=== PATIENT | female | born 1995 | race Caucasian/White ===

== ENCOUNTER 2024-01-10 10:36 | Inpatient (IN) | payer SELFPAY ==
[2024-01-10] VITALS (53 sets, daily range): BP systolic 113–165; BP diastolic 60–94; PULSE 66–90; RESP 14–18; TEMP 36.4–38.6; O2SAT 80–100; BMI 35.6
[2024-01-10] MEDS: Lactated Ringers 1,000 ML 999 ML IV (10:40)
[2024-01-10 11:01] LABS: Absolute Neutrophil Count 9.8 X10^3/uL (2.0-7.7); Basophil# 0.02 X10^3/uL; Basophil% 0.2 % (0-1); Hematocrit 38.6 % (37-47); Hemoglobin 13.1 g/dL (12.0-15.0); Lymphocyte % 12.3 % (19-41); Mean Corp Hgb Conc 33.9 g/dL (32-36); Mean Corpuscular Hgb 30.5 pg (27.0-32.0); Mean Platelet Vol. 10.9 fl (6.2-12.0); Monocyte# 0.88 X10^3/uL; Monocyte% 7.2 % (0-10); NRBC Flagged by Analyzer 0 % (0-5); Neutrophil # 9.77 X10^3/uL (2.7-7.7); Neutrophil % 79.8 % (47-70); Platelet Count 192 K/mm3 (150-450); RBC Distribution Width CV 14.3 % (11.6-14.6); RBC Distribution Width SD 46.8 fl (35.1-43.9); Red Blood Count 4.29 M/mm3 (4.2-5.4); White Blood Count 12.2 K/mm3 (4.4-11.0)
[2024-01-10] MEDS: Lactated Ringers 1,000 ML 150 ML IV (11:28)
[2024-01-10] MEDS: fentaNYL-bupivacaine (epidural) 100 ML BAG EPIDURAL (11:54)
--- NOTE | 2024-01-10 13:02 | PCM.HP.OB ---
HPI - General General Date of Admission: 01/10/24 Date of Service: 01/10/24 HPI Narrative BRANNON LAWSON, is a 28 F who presents from home in labor. Patient states that her water broke at 7:30pm last night and she was having contractions. Her printed circuit layout taper called and stated patient has been 8cm for 6 hours. Patient is now comfortable with an epidural. Maternal Data Information YANIV Calculator Estimated Delivery Date Method Current WG Current Estimate 01/11/24 Manual 39w 6d PFSH PFSH Medical History Gestational HTN Home Medications ?Medication ?Instructions ?Recorded ?Last Taken ?Type vzcfgbry-daj-Hg-FA 1 mg tab PO 1XD 01/10/24 01/10/24 History tablet Allergy/AdvReac Type Severity Reaction Status Date / Time No Known Allergies Allergy Verified 01/10/24 11:14 Family History no significant family his Surgical History no surgical history Social History Smoking Status: Never smoker History Elective abortions Hx Para 3 Spontaneous abortions Hx # Term Pregnancies Ectopic pregnancies Hx # Pregnancies Multiple births # of living children NST FHR Rate Baby A Baseline: 135 Variability:: Moderate Accelerations:: 15 x 15 Decelerations:: None Uterine Activity:: Q4-5 minutes Vital Signs Vital Signs Vital Signs: 01/10/24 11:36 01/10/24 11:36 01/10/24 11:41 Pulse Rate 66 76 Blood Pressure BP Systolic BP Diastolic Pulse Ox 99 01/10/24 11:41 01/10/24 11:42 01/10/24 11:42 Pulse Rate 75 Blood Pressure 165/89 H BP Systolic 165 BP Diastolic 89 Pulse Ox 100 01/10/24 11:46 01/10/24 11:46 01/10/24 11:49 Pulse Rate 70 Blood Pressure 150/91 H BP Systolic 150 BP Diastolic 91 Pulse Ox 100 01/10/24 11:49 01/10/24 11:51 01/10/24 11:51 Pulse Rate 74 67 Blood Pressure BP Systolic BP Diastolic Pulse Ox 100 01/10/24 11:53 01/10/24 11:53 01/10/24 11:56 Pulse Rate 67 80 Blood Pressure 157/94 H BP Systolic 157 BP Diastolic 94 Pulse Ox 01/10/24 11:56 01/10/24 11:58 01/10/24 11:58 Pulse Rate 70 Blood Pressure 161/90 H BP Systolic 161 BP Diastolic 90 Pulse Ox 100 01/10/24 11:58 01/10/24 12:01 01/10/24 12:01 Pulse Rate 80 Blood Pressure BP Systolic BP Diastolic Pulse Ox 83 96 01/10/24 12:02 01/10/24 12:02 01/10/24 12:05 Pulse Rate 77 84 Blood Pressure 149/91 H BP Systolic 149 BP Diastolic 91 Pulse Ox 01/10/24 12:05 01/10/24 12:06 01/10/24 12:06 Pulse Rate 78 Blood Pressure BP Systolic BP Diastolic Pulse Ox 93 92 01/10/24 12:07 01/10/24 12:07 01/10/24 12:11 Pulse Rate 76 78 Blood Pressure 157/85 H BP Systolic 157 BP Diastolic 85 Pulse Ox 01/10/24 12:11 01/10/24 12:13 01/10/24 12:13 Pulse Rate 73 Blood Pressure 138/67 H BP Systolic 138 BP Diastolic 67 Pulse Ox 100 01/10/24 12:16 01/10/24 12:16 01/10/24 12:21 Pulse Rate 77 72 Blood Pressure BP Systolic BP Diastolic Pulse Ox 97 01/10/24 12:21 Pulse Rate Blood Pressure BP Systolic BP Diastolic Pulse Ox 89 Weight Weight: 188 lb 8 oz Body Mass Index (BMI) 35.6 Labs Labs Labs: Blood Type A POSITIVE Antibody Screen NEGATIVE Hct 38.6 % (37-47) Hgb 13.1 g/dL (12.0-15.0) Syphilis Total Ab Pending Rubella IgG Antibody Pending Hep Bs Antigen Pending Hepatitis C Antibody Pending HIV 1&2 Antibody Pending Group B Strep DNA Pending Assessment & Plan (1) 39 weeks gestation of : COMMENT: @ 39&6 PLAN: Admit to L&D Pain - epidural Will start pitocin to obtain adequate contractions Check preE labs GBS unknown but term & no risk factors Plan of care discussed with patient & her Routine care
[2024-01-10] MEDS: Oxytocin 15 Units/NS 250ml 15 UNITS/250 ML IV.SOLN 2 UNITS IV (13:21)
[2024-01-10 14:15] LABS: AST(SGOT) 106 U/L (15-37); Alanine Aminotransfer ALT/SGPT 267 U/L (13-56); Creatinine, Serum 0.72 mg/dL (0.55-1.02); EST Glomerular Filtration Rate 102 mL/min (>60); Est Glom Filt Rate - Afr Amer 123 mL/min (>60); Estimated Creatinine Clearance 114.44 ml/min
[2024-01-10 14:16] LABS: Bacteria 0 SEEN /hpf (None Seen); Mucous, Urine 0 SEEN /hpf (<or=2+); Red Blood Cells-Urine 0 SEEN /hpf (0-5); Squamous Epithelial Cells - UA 0 SEEN /hpf (5-10); White Blood Cells 0 SEEN /hpf (0-5)
[2024-01-10 14:18] LABS: Color, Urine Yellow (Yellow); Glucose, Dipstick Normal (Normal); Ketone-Dipstick 50 mg/dl (Negative); Leukocyte Esterase-Dipstick Negative /ul (Negative); Nitrite-Dipstick Negative (Negative); Occult Blood-Urine Negative /ul (Negative); Protein-Dipstick 30 mg/dl (Negative); Specific Gravity, Urine 1.005 (1.002-1.030); Urine Bilirubin Dipstick Negative (Negative); Urine Clarity Clear (Clear); Urine Urobilinogen Normal (Normal); Urine pH 6.5 (5.0 - 8.0)
[2024-01-10 14:29] LABS: Amphetamine Urine VISTA NEGATIVE (<1000 ng/mL); Barbiturate Urine VISTA NEGATIVE (< 200 ng/mL); Benzodiazepine Urine VISTA NEGATIVE (< 200 ng/mL); Cocaine Urine VISTA NEGATIVE (< 300 ng/mL); Ecstacy Urine VISTA NEGATIVE (< 500 ng/mL); Methadone Urine VISTA NEGATIVE (< 300 ng/mL); PCP Urine VISTA NEGATIVE (< 25 ng/mL); THC Urine VISTA NEGATIVE (< 50 ng/mL); Vista UDS pH Range 5
[2024-01-10 14:33] LABS: Protein, Urine (Random) 21.9 mg/dL (<11.9); Protein:Creat Ratio 382 mg/g CRE (0-200)
--- NOTE | 2024-01-10 15:08 | EX.PCM.OBRPT ---
Maternal Data Information YANIV Calculator Estimated Delivery Date Method Current WG Current Estimate 01/11/24 Manual 39w 6d Vaginal Delivery Maternal Presentation Maternal Presentation: Active Labor Operative Information Date of Procedure: 01/10/24 Pre-Operative Diagnosis: (1) Labor (2) Preeclampsia Post-Operative Diagnosis: Same Surgery / Procedure Performed: Spontaneous Vaginal Delivery Type of Anesthesia: Epidural Estimated Blood Loss: 200ml Findings Description of Procedure: Patient had precipitous vaginal delivery. 3VC clamped & cut in delayed fashion. Placenta delivered with gentle traction and good uterine tone obtained. Presentation: Vertex Amniotic Membrane Rupture Type: Spontaneous Amniotic Fluid Description: Moderate meconium (terminal) Placental Delivery Description: Expressed Placenta Disposition: [facility] Specimen(s) Removed: Placenta Cord Vessel Description: 3 Vessels Cord Entanglement: None Infant A Gender: Male (1 minute): 9 (5 minute): 9 Delayed Cord Clamping: Yes Post Vaginal Delivery Medications Given After Delivery: IV Pitocin Episiotomy Description: None Laceration: 1st degree (vaginal - repaired with 3-0 vicryl) Complication Complications: None
[2024-01-10 15:29] LABS: Group B Strep DNA By PCR Negative (Negative); Internal Control PASS; Probe Check PASS; Specimen Processing Control PASS
[2024-01-10] MEDS: Oxytocin 15 Units/NS 250ml 15 UNITS/250 ML IV.SOLN 334 UNITS IV (16:58)
[2024-01-10] MEDS: Oxytocin 15 Units/NS 250ml 15 UNITS/250 ML IV.SOLN 83 UNITS IV (17:54)
[2024-01-10] MEDS: Acetaminophen 500 MG Tablet 1000 MG PO (17:58)
[2024-01-10 18:50] LABS: AST(SGOT) 133 U/L (15-37); Alanine Aminotransfer ALT/SGPT 291 U/L (13-56); LDH 276 U/L (84-246)
[2024-01-10] MEDS: Magnesium Sulfate 4gm/100mL 4 GM/100 ML IV.SOLN. IV (19:34)
[2024-01-10] MEDS: Magnesium Sulfate 20 GM/500 ML BAG IV (20:01)
[2024-01-11] VITALS (21 sets, daily range): BP systolic 99–144; BP diastolic 59–79; PULSE 74–87; RESP 12–20; TEMP 36.4–37; O2SAT 94–100
[2024-01-11] MEDS: Magnesium Sulfate 20 GM/500 ML BAG IV ×2 (05:35→14:26)
[2024-01-11 06:26] LABS: ALB/GLOB Ratio 0.6 RATIO (0.9-2.4); AST(SGOT) 88 U/L (15-37); Alanine Aminotransfer ALT/SGPT 243 U/L (13-56); Albumin, Serum 2.4 g/dL (3.2-5.0); Alkaline Phosphatase 189 U/L (45-117); Anion Gap 8 (5-15); BUN 6 mg/dL (7-18); BUN/Creat Ratio 9.7 RATIO (10-20); Calcium,Total 8.1 mg/dL (8.5-10.1); Chloride 110 mmol/L (98-107); Creatinine, Serum 0.62 mg/dL (0.55-1.02); EST Glomerular Filtration Rate 120 mL/min (>60); Est Glom Filt Rate - Afr Amer 146 mL/min (>60); Globulin 3.9 g/dL (2.2-4.2); Glucose 95 mg/dL (74-106); LDH 282 U/L (84-246); Potassium 3.9 mmol/L (3.5-5.1); Protein, Total 6.3 g/dL (6.4-8.2); Sodium Level 141 mmol/L (136-145)
[2024-01-11 07:00] LABS: Absolute Lymphocyte Count 2.02 X10^3/uL (0.83-4.51); Absolute Neutrophil Count 10.2 X10^3/uL (2.0-7.7); Basophil# 0.04 X10^3/uL; Basophil% 0.3 % (0-1); Eosinophil# 0.04 X10^3/uL; Eosinophils% 0.3 % (0-5); Hematocrit 35.3 % (37-47); Hemoglobin 11.9 g/dL (12.0-15.0); Lymphocyte # 2.02 X10^3/ul (0.83-4.51); Lymphocyte % 15.2 % (19-41); Mean Corp Hgb Conc 33.7 g/dL (32-36); Mean Corpuscular Hgb 31.3 pg (27.0-32.0); Mean Corpuscular Volume 92.9 fL (81-99); Mean Platelet Vol. 11.3 fl (6.2-12.0); Monocyte# 0.94 X10^3/uL; Monocyte% 7.1 % (0-10); NRBC Flagged by Analyzer 0 % (0-5); Neutrophil # 10.17 X10^3/uL (2.7-7.7); Neutrophil % 76.6 % (47-70); Platelet Count 210 K/mm3 (150-450); RBC Distribution Width CV 14.6 % (11.6-14.6); RBC Distribution Width SD 49.9 fl (35.1-43.9); White Blood Count 13.3 K/mm3 (4.4-11.0)
--- NOTE | 2024-01-11 08:45 | PN.OBGYN_ITS ---
Subjective Subjective Patient seen at bedside. Denies headache, dizziness, vision changes, SOB, CP or RUQ pain. Ambulating with assistance to bathroom and voiding without difficulty. Denies any pain. Lochia is minimal. Objective Data Objective Data Vital Signs: Vital Signs Temp Pulse Resp BP Pulse Ox O2 Del Method 97.5 F L 75 18 108/71 96 Room Air 01/11/24 08:20 01/11/24 08:20 01/11/24 08:20 01/11/24 08:20 01/11/24 08:20 01/11/24 08:20 Oxygen Delivery Method Room Air Weight: 188 lb 8 oz Body Mass Index (BMI) 35.6 Intake & Output: Intake and Output for Last 24 Hours 01/09/24 01/10/24 01/11/24 23:59 23:59 23:59 Intake Total 3436.3 / 3436.3 978.33 / 978.33 Output Total 2600 / 2600 1550 / 1550 Balance 836.3 / 836.3 -571.67 / -571.67 Lab / Micro Data 01/11/24 05:25 01/11/24 05:25 Labs: Laboratory Results - last 24 hr 01/10/24 10:40: WBC 12.2 H 01/10/24 10:40: WBC Cancelled, Corrected WBC Cancelled, RBC 4.29 01/10/24 10:40: RBC Cancelled, Hgb 13.1 01/10/24 10:40: Hgb Cancelled, Hct 38.6 01/10/24 10:40: Hct Cancelled, MCV 90.0 01/10/24 10:40: MCV Cancelled, MCH 30.5 01/10/24 10:40: MCH Cancelled, MCHC 33.9 01/10/24 10:40: MCHC Cancelled, RDW Std Deviation 46.8 H 01/10/24 10:40: RDW Std Deviation Cancelled, RDW Coeff of January 14.3 01/10/24 10:40: RDW Coeff of January Cancelled, Plt Count 192 01/10/24 10:40: Plt Count Cancelled, MPV 10.9 01/10/24 10:40: MPV Cancelled, Immature Gran % (Auto) 0.500 01/10/24 10:40: Immature Gran % (Auto) Cancelled, Neut % (Auto) 79.8 H 01/10/24 10:40: Neut % (Auto) Cancelled, Lymph % (Auto) 12.3 L 01/10/24 10:40: Lymph % (Auto) Cancelled, [place] % (Auto) 7.2 01/10/24 10:40: [place] % (Auto) Cancelled, Eos % (Auto) 0.0 01/10/24 10:40: Eos % (Auto) Cancelled, Baso % (Auto) 0.2 01/10/24 10:40: Baso % (Auto) Cancelled, Absolute Neuts (auto) 9.8 H 01/10/24 10:40: Absolute Neuts (auto) Cancelled, Absolute Lymphs (auto) 1.50 01/10/24 10:40: Absolute Lymphs (auto) Cancelled, Total Counted Cancelled, Neutrophils % (Manual) Cancelled, Band Neutrophils % Cancelled, Lymphocytes % (Manual) Cancelled, Monocytes % (Manual) Cancelled, Eosinophils % (Manual) Cancelled, Basophils % (Manual) Cancelled, Metamyelocytes % Cancelled, Myelocytes % Cancelled, Promyelocytes % Cancelled, Blast Cells % Cancelled, Plasma Cell % (Manual) Cancelled, Other Cells % Cancelled, Nucleated RBC % 0 01/10/24 10:40: Nucleated RBC % Cancelled, Nucleated RBCs/100 WBC Cancelled, Differential Comment Cancelled, Diff Path Review Cancelled, Hypersegmented Neuts Cancelled, Atypical Lymphocytes Cancelled, Reactive Lymphocytes Cancelled, Smudge Cells Cancelled, Toxic Granulation Cancelled, Toxic Vacuolation Cancelled, Dohle Bodies Cancelled, Chey Rods Cancelled, Platelet Estimate Cancelled, Plt Morphology Comment Cancelled, RBC Morphology Cancelled 01/10/24 10:40: RBC Morphology Cancelled, Polychromasia Cancelled, Hypochromasia Cancelled, Basophilic Stippling Cancelled, Anisocytosis Cancelled, Microcytosis Cancelled, Macrocytosis Cancelled, Spherocytes Cancelled, Sickle Cells Cancelled, Target Cells Cancelled, Tear Drop Cells Cancelled, Ovalocytes Cancelled, Stomatocytes Cancelled, [place] Bodies Cancelled, [place] Cells Cancelled, Bite Cells Cancelled, Crenated Cell Cancelled, Acanthocytes (Spur) Cancelled, Rouleaux Cancelled, Schistocytes Cancelled, Blood Type A POSITIVE, Antibody Screen NEGATIVE 01/10/24 13:20: Creatinine 0.72, Estim Creat Clear Calc 114.44, Est GFR (MDRD) Af Amer 123, Est GFR (MDRD) Non-Af 102, Uric Acid 6.0, AST 106 H, ALT 267 H 01/10/24 13:50: Group B Strep DNA Negative, Specimen Comment Not Reportable 01/10/24 14:00: Urine Color Yellow, Urine Clarity Clear, Urine pH 6.5, Ur Specific [place] 1.005, Urine Protein 30 H, Urine Glucose (UA) Normal, Urine Ketones 50 H, Urine Occult Blood Negative, Urine Nitrite Negative, Urine Bilirubin Negative, Urine Urobilinogen Normal, Ur Leukocyte Esterase Negative, Urine RBC 0 SEEN, Urine WBC 0 SEEN, Ur Squamous Epith Cells 0 SEEN, Urine Bacteria 0 SEEN, Urine Mucus 0 SEEN, U Random Total Protein 21.9 H, Urine Creatinine 57.40, Protein/Creatinin Ratio 382 H, Urine Opiates Screen NEGATIVE, Urine Methadone Screen NEGATIVE, Ur Barbiturates Screen NEGATIVE, Ur Phencyclidine Scrn NEGATIVE, Ur Amphetamines Screen NEGATIVE, MDMA (Ecstasy) Screen NEGATIVE, U Benzodiazepines Scrn NEGATIVE, Urine Cocaine Screen NEGATIVE, U Cannabinoids Screen NEGATIVE, Ur Drug Screen Comment 01/10/24 18:05: AST 133 H, ALT 291 H, Lactate Dehydrogenase 276 H 01/11/24 05:25: WBC 13.3 H, RBC 3.80 L, Hgb 11.9 L, Hct 35.3 L, MCV 92.9, MCH 31.3, MCHC 33.7, RDW Std Deviation 49.9 H, RDW Coeff of January 14.6, Plt Count 210, MPV 11.3, Immature Gran % (Auto) 0.500, Neut % (Auto) 76.6 H, Lymph % (Auto) 15.2 L, [place] % (Auto) 7.1, Eos % (Auto) 0.3, Baso % (Auto) 0.3, Absolute Neuts (auto) 10.2 H, Absolute Lymphs (auto) 2.02, Nucleated RBC % 0, Sodium 141, Potassium 3.9, Chloride 110 H, Carbon Dioxide 23.0, Anion Gap 8, BUN 6 L, Creatinine 0.62, Estim Creat Clear Calc 132.90, Est GFR (MDRD) Af Amer 146, Est GFR (MDRD) Non-Af 120, BUN/Creatinine Ratio 9.7 L, Glucose 95, Calcium 8.1 L, Total Bilirubin 0.40, AST 88 H, ALT 243 H, Alkaline Phosphatase 189 H, Lactate Dehydrogenase 282 H, Total Protein 6.3 L, Albumin 2.4 L, Globulin 3.9, A lbumin/Globulin Ratio 0.6 L Micro: Microbiology 01/10/24 14:00 Genital vaginal Chlamydia trachomatis (PCR) - Final 01/10/24 14:00 Genital vaginal Neisseria gonorrhoeae (PCR) - Final ROS Eyes Eyes: Denies blurry vision, change in vision or spots in vision ENT HEENT: Denies dizziness or headache(s) Cardiovascular Cardiovascular: Denies abdominal pain, chest pain or dyspnea Respiratory/Chest Respiratory/Chest: Denies cough, dyspnea, shortness of breath at rest or shortness of breath with exertion Gastrointestinal Gastrointestinal: Denies abdominal pain, diarrhea or vomiting Genitourinary Genitourinary: Denies change in urinary stream, difficulty urinating or dysuria Musculoskeletal Musculoskeletal: Reports none Integumentary Integumentary: Denies rash Neurologic Neurologic: Denies dizziness, headache(s), memory loss or weakness Physical Exam Const alert and no apparent distress General Appearance: cooperative and comfortable Exam Limitations: no limitations HEENT normocephalic Eyes General Eye: normal appearance of both eyes Neck full ROM General: normal visual inspection Chest Chest: symmetrical chest wall rise Resp normal respiratory effort and normal air movement Effort and Inspection: symmetric chest movement Auscultation: clear to auscultation bilaterally Cardio regular rate and regular rhythm GI normal to inspection, nondistended, normoactive bowel sounds Back/Spine normal ROM Extremity full ROM and no calf tenderness General Extremity: normal exam except as noted Skin no rashes or lesions noted Neuro CN's II-XII intact bilaterally Psych mental status grossly normal Assessment & Plan (1) (spontaneous vaginal delivery): (2) Preeclampsia: (3) Care and examination of lactating mother: (4) Elevated liver enzymes: (5) Laceration, obstetrical, first degree: PLAN: Plan PPD 1 - Preeclampsia/ Elevated liver enzymes Magnesium Sulfate 2 gm/ hr - continue for 24 hours Blood pressures 120/60-70's Patient is asymptomatic support Continue to monitor closely
--- NOTE | 2024-01-11 08:45 | NURSING ---
pt up to void post fundal check, output 650cc.
[2024-01-12 01:51] VITALS: BP 130/81; PULSE 71
[2024-01-12 01:52] VITALS: BP 130/81; PULSE 71; RESP 16; TEMP 36.6
[2024-01-12 07:47] VITALS: BP 120/69; PULSE 73; RESP 15; TEMP 36.8
--- NOTE | 2024-01-12 10:09 | PCM.PN.OB ---
Subjective Subjective Doing well per patient and nursing staff. Ambulating and taking PO without difficulty. Voiding and passing flatus. Pain controlled. , services for assistance. Denies headache, visual changes, chest pain, shortness of breath, leg pain or increased bleeding. Lochia normal. Objective Data Objective Data BP slightly increased Vital Signs: Vital Signs Temp Pulse Resp BP Pulse Ox O2 Del Method 98.3 F 73 15 120/69 97 Room Air 01/12/24 07:47 01/12/24 07:47 01/12/24 07:47 01/12/24 07:47 01/11/24 21:26 01/12/24 07:47 Oxygen Delivery Method Room Air Weight: 188 lb 8 oz Body Mass Index (BMI) 35.6 Intake & Output: Intake and Output for Last 24 Hours 01/10/24 01/11/24 01/12/24 23:59 23:59 23:59 Intake Total 3436.3 / 3436.3 2578.33 / 2578.33 Output Total 2600 / 2600 3750 / 3750 Balance 836.3 / 836.3 -1171.67 / -1171.67 Lab / Micro Data 01/11/24 05:25 01/11/24 05:25 Micro: Microbiology 01/10/24 14:00 Genital vaginal Chlamydia trachomatis (PCR) - Final 01/10/24 14:00 Genital vaginal Neisseria gonorrhoeae (PCR) - Final ROS Constitutional Constitutional: Reports systems reviewed and no addt'l complaints, except as documented; Denies headache(s) Eyes Eyes: Denies acute decrease in peripheral vision, blurry vision or change in vision ENT HEENT: Reports systems reviewed and no addt'l complaints, except as documented Cardiovascular Cardiovascular: Denies chest pain or dizziness Respiratory/Chest Respiratory/Chest: Denies cough, dyspnea, dyspnea on exertion, shortness of breath at rest or shortness of breath with exertion Gastrointestinal Gastrointestinal: Denies abdominal pain, diarrhea, nausea or vomiting Genitourinary Genitourinary: Denies abdominal discomfort Musculoskeletal Musculoskeletal: Denies limited range of motion Integumentary Integumentary: Reports systems reviewed and no addt'l complaints, except as documented Neurologic Neurologic: Reports systems reviewed and no addt'l complaints, except as documented Psychiatric Psychiatric: Reports systems reviewed and no addt'l complaints, except as documented Endocrine Endocrinology: Reports systems reviewed and no addt'l complaints, except as documented Hematologic/Lymphatic Hematologic/Lymphatic: Reports systems reviewed and no addt'l complaints, except as documented Allergic/Immunologic Allergic/Immunologic: Reports systems reviewed and no addt'l complaints, except as documented Physical Exam Const alert and oriented x3 General Appearance: cooperative Orientation / Consciousness: awake, oriented to person, oriented to place and oriented to time Exam Limitations: no limitations HEENT normocephalic Head and Scalp: normal to inspection, normocephalic and atraumatic Face and Sinus: normal facial exam Eyes General Eye: normal appearance of both eyes Neck full ROM Chest Chest: symmetrical chest wall rise Resp normal respiratory effort and normal air movement Auscultation: clear to auscultation bilaterally Cardio regular rate, regular rhythm, S1 normal heart sound, S2 normal heart sound, no murmurs, no rub, no gallops and no clicks GI normal to inspection, nondistended, normoactive bowel sounds and non-tender appearance of the vagina normal Bladder / Kidney Exam: no CVA tenderness Back/Spine normal ROM Extremity normal to inspection and full ROM Skin no rashes or lesions noted Neuro oriented x3, CN's II-XII intact bilaterally and moves all extremities Sensorium / Orientation: awake, alert and oriented to person Motor Exam: clonus absent Deep Tendon Reflexes: Rt Patellar (L4): 2+ and Lt Patellar (L4): 2+ Assessment & Plan (1) Laceration, obstetrical, first degree: (2) Elevated liver enzymes: (3) Care and examination of lactating mother: (4) Preeclampsia: (5) (spontaneous vaginal delivery): PLAN: Plan 1) BP 137/77. Asymptomatic. Magnesium stopped at 1930 on 01/11/24. Will start Procardia XR 30mg PO once daiy. First dose here, will send Rx. Recommended to stay 72hr post delivery, patient requesting to go home. Reviewed Preeclampsia symptoms and when to call. BP check at home. Wanted to send home on monitoring system but no phone or internet service. Has BP cuff at home, will check twice daily and call if increased. consulted and agrees with above assessment and plan. 2) Pain controlled 3) I&O 4) 5) Labs stable and LFTs decreased 6) D/C home today, recommend staying one more day but informed refusal. Patient does not want to follow up with our office as she was seeing Lorrie Herndon, automotive design layout drafter for care. Patient states she has a family doctor that she can see tomorrow and follow up for BP management. Discussed importance and risk of preeclampsia and management and she voiced understanding.
[2024-01-12 10:11] VITALS: BP 137/77; PULSE 85
--- NOTE | 2024-01-12 10:59 | DS.PCM_ITS ---
Providers Date of Admission: 01/10/24 Date of Discharge: 01/12/24 Primary Care Physician: Dr. Selwyn Braxton MD Reason For Visit: VAGINAL DELIVERY Diagnosis Discharge Diagnosis (1) Laceration, obstetrical, first degree: Status: Acute Code(s): O70.0 - First degree perineal laceration during delivery (2) Elevated liver enzymes: Status: Acute Code(s): R74.8 - Abnormal levels of other serum enzymes (3) Care and examination of lactating mother: Status: Acute Code(s): Z39.1 - Encounter for care and examination of lactating mother (4) Preeclampsia: Status: Acute Code(s): O14.90 - Unspecified pre-eclampsia, unspecified trimester (5) (spontaneous vaginal delivery): Status: Acute Code(s): O80 - Encounter for full-term uncomplicated delivery Plan 1) BP 137/77. Asymptomatic. Magnesium stopped at 1930 on 01/11/24. Will start Procardia XR 30mg PO once daiy. First dose here, will send Rx. Recommended to stay 72hr post delivery, patient requesting to go home. Reviewed Preeclampsia symptoms and when to call. BP check at home. Wanted to send home on monitoring system but no phone or internet service. Has BP cuff at home, will check twice daily and call if increased. consulted and agrees with above assessment and plan. 2) Pain controlled 3) I&O 4) 5) Labs stable and LFTs decreased 6) D/C home today, recommend staying one more day but informed refusal. Patient does not want to follow up with our office as she was seeing Lorrie Herndon, channel layer for care. Patient states she has a family doctor that she can see tomorrow and follow up for BP management. Discussed importance and risk of preeclampsia and management and she voiced understanding. Medications at Discharge Home Medications [id number]-[id number]-FA 1 mg tablet tab PO 1XD 01/10/24 acetaminophen 500 mg tablet 1,000 mg (2 x 500 mg) PO Q6H PRN PRN Pain 1-10 Or Fever #0 tabs 01/12/24 ibuprofen 600 mg tablet 600 mg PO Q6H PRN PRN Pain Score 1-10 #0 tabs 01/12/24 nifedipine 30 mg tablet,extended release 24 hr (Procardia XL) 30 mg PO DAILY #30 tabs 01/12/24 Hospital Course Summary of Care Provided Minutes Spent on Discharge: 15 Weight / BMI Weight Weight: 188 lb 8 oz Body Mass Index (BMI) 35.6 ABG / Lab / Microbiology Data 01/11/24 05:25 01/11/24 05:25 Microbiology: Microbiology 01/10/24 14:00 Genital vaginal Chlamydia trachomatis (PCR) - Final 01/10/24 14:00 Genital vaginal Neisseria gonorrhoeae (PCR) - Final D/C Instructions Discharge Diet: No restrictions Discharge Activity: Return to Normal Activity, May Drive, May Shower and May Take a Tub Bath May resume sexual activity in: 6 weeks Weight Bearing Status: Full weight bearing Lifting Restricted to (Lbs): 20 Call your doctor if you observe: Fever of 101 or Higher, Inability to urinate, Inability to have a bowel movement, Using more than 1 pad per hour, Shortness of breath, Dizziness, Chest pain, Increased palpitations (irregular heartbeat), Calf discomfort and Uncontrolled pain When: Recommend follow up on 01/12 for BP check, 2 week and 6 week . If not coming to our office, please call with your management. [phone] and ask to speak with nurse in women's health. If BP is 160/110 or greater please call [phone] for [facility]. Meaningful Use Info Meaningful Use Meaningful Use Diagnoses (Choose all that apply): None applicable Ischemic Stroke Statin Dosing Therapy Reference: STATIN DOSE THERAPY REFERENCE: * Patients > 75 years receive moderate or high dose statin therapy. * Patients 75 years or YOUNGER should receive HIGH intensity statin dose unless contraindicated. You will be required to document reason for non-treatment if statin daily dose does not meet guidelines. HIGH DOSE STATIN THERAPY DAILY Atorvastatin > than or = to 40 mg Rosuvastatin > than or = to 20 mg Amlodipine + Atorvastatin > than or = to 2.5/40 mg Ezetimibe + Simvastatin 10/80 mg Simvastatin 80mg Discharge Plan Admission Admit Date/Time: 01/10/24 10:36 Primary Reason for Your Visit: DELIVERY Attending Provider: Teetee Vazquez Primary Care Provider: Selwyn Braxton Instructions Patient Instructions: After a Vaginal Discharge Orders/Prescriptions Prescriptions: New acetaminophen 500 mg Tablet 1,000 mg PO Q6H PRN PRN (Reason: Pain 1-10 Or Fever) Qty: 0 0RF ibuprofen 600 mg Tablet 600 mg PO Q6H PRN PRN (Reason: Pain Score 1-10) Qty: 0 0RF nifedipine [Procardia XL] 30 mg tablet extended release 24hr 30 mg PO DAILY Qty: 30 1RF Continued tllumazt-hxn-Py-FA 1 mg tablet PO 1XD Referrals / Follow Up: Selwyn Braxton MD [Primary Care Provider] - Disposition Disposition (needs filled in before D/C Order can be placed): Home, Self Care
[2024-01-12] MEDS: NIFEdipine 30 MG Tablet PO (11:36)
[2024-01-12 11:39] VITALS: BP 137/77; PULSE 73; RESP 15; TEMP 36.8
[2024-01-12 13:39] LABS: Rubella IgG Non-Reactive (Nonreactive); Syphilis Antibodies Non-reactive
[2024-01-12 16:13] LABS: HIV - WCH Non-Reactive (Nonreactive); Syphilis Antibodies Non-reactive
[2024-01-12 16:30] LABS: Hepatitis B Surface Antigen Non-Reactive (Nonreactive); Hepatitis C Antibody Non-Reactive (Nonreactive)
== END 2024-01-12 11:40 | disposition home or self-care (01) | DRG 807 ==
PROVIDERS: Admitting Provider Obstetrics & Gynecology; PCP Family Medicine; Referring Provider Obstetrics & Gynecology; Visit Provider Obstetrics & Gynecology
DX: O14.94 Unspecified pre-eclampsia, complicating childbirth (principal); Z37.0 Single live birth; O26.23 Pregnancy care for patient with recurrent pregnancy loss, third trimester; O70.0 First degree perineal laceration during delivery; O62.3 Precipitate labor; O77.0 Labor and delivery complicated by meconium in amniotic fluid; Z3A.39 39 weeks gestation of pregnancy; R74.8 Abnormal levels of other serum enzymes
CPT/HCPCS: 59025; 59050; 80053; 80307; 81001; 82565; 82570; 83615; 84156; 84450; 84460; 84550; 85025; 86703; 86762; 86780; 86803; 86850; 86900; 86901; 87081; 87340; 87491; 87591; 87653; 99221; J7120; G0378